=== PATIENT | male | born 1965 | race Native Hawaiian/Other Pacific Islander ===

== ENCOUNTER 2020-11-15 13:22 | Emergency (ER) | payer OTHER ==
[~2020-11-15] VITALS: Ht 180.3 cm; Wt 97.5 kg
--- NOTE | 2020-11-15 13:50 | NUR ---
AFTER STARTING IV, PATIENT STARTED TO FEEL HOT, SWEATING AND FELT LIKE HE WAS GOING TO PASS OUT. PT WAS PROVIDED A COOL CLOTH, FLUIDS WERE STARTED WIDE OPEN AND BOTH SIDE RAILS WERE PUT UP. PT'S BLOOD PRESSURE DROPPED TO 87/57. AFTER FLUIDS STARTED, PATIENTS BLOOD PRESSURE WAS 126/67.
[2020-11-15] MEDS ORDERED: NS IV 1000 ML 1,000 ML ONE (13:55)
[2020-11-15 14:18] LABS: HEMATOCRIT 45 % (40-54); HEMOGLOBIN 15.7 G/DL (13.3-17.7); MEAN CORPUSCULAR HEMOGLOBIN 31 PG (25-34); MEAN CORPUSCULAR HGB CONC 35 G/DL (32-36); MEAN CORPUSCULAR VOLUME 87 FL (80-99); WHITE BLOOD COUNT 8.2 10^3/uL (4.3-11.0)
[2020-11-15 14:19] LABS: BASOPHILS % (AUTO) 1 % (0-10); EOSINOPHILS # (AUTO) 0.1 10^3/uL (0.0-0.3); EOSINOPHILS % (AUTO) 1 % (0-10); LYMPHOCYTES # (AUTO) 0.7 X 10^3 (1.0-4.0); LYMPHOCYTES % (AUTO) 8 % (12-44); MEAN PLATELET VOLUME 9.2 FL (7.4-10.4); MONOCYTES # (AUTO) 0.7 X 10^3 (0.0-1.0); MONOCYTES % (AUTO) 9 % (0-12); NEUTROPHILS # (AUTO) 6.6 X 10^3 (1.8-7.8); NEUTROPHILS % (AUTO) 81 % (42-75); PLATELET COUNT 268 10^3/uL (130-400)
--- NOTE | 2020-11-15 14:34 | Diagnostic Imaging Report ---
EXAM: CHEST 1 VIEW AP/PA ONLY INDICATION: Shortness of air. COMPARISON: None. FINDINGS: Normal heart size and pulmonary vascularity. No dense consolidation, pleural effusion or pneumothorax. No acute osseous findings. IMPRESSION: Negative chest. Dictated by: Dictated on workstation # [id number]
[2020-11-15 14:51] LABS: ALANINE AMINOTRANSFERASE 56 U/L (0-55); ALKALINE PHOSPHATASE 80 U/L (40-136); BILIRUBIN,TOTAL 0.5 MG/DL (0.1-1.0); BUN/CREATININE RATIO 15; CALCIUM 9.6 MG/DL (8.5-10.1); CARBON DIOXIDE 25 MMOL/L (21-32); CHLORIDE 104 MMOL/L (98-107); CREATININE SERUM 1.17 MG/DL (0.60-1.30); GFR ESTIMATED > 60; GLUCOSE 104 MG/DL (70-105); POTASSIUM 4.3 MMOL/L (3.6-5.0); SODIUM 141 MMOL/L (135-145)
[2020-11-15 14:52] LABS: ALBUMIN 4.5 GM/DL (3.2-4.5); TOTAL PROTEIN 7.5 GM/DL (6.4-8.2)
[2020-11-15] MEDS ORDERED: AZIT250T PO (16:00)
[2020-11-15] MEDS ORDERED: PRD20T PO (16:00)
[2020-11-15 16:16] VITALS: BP 159/86
--- NOTE | 2020-11-16 07:14 | ED General ---
General Chief Complaint: Respiratory Problems Stated Complaint: COVID +, COUGH, FEVER, ACHY Nursing Triage Note: PT ARRIVED BY PRIVATE VEHICLE WITH CHIEF COMPLAINT OF COVID POSITIVE. PT WAS ALERT, ORIENTED X 4 AND AMBULATORY ON ARRIVAL. PT AMBULATED TO ROOM 3. VITAL SIGNS WERE TAKEN AND IV WAS STARTED (20 GAUGE IN RIGHT AC), AND BLOOD WAS DRAWN. PT TESTED POSITIVE TODAY. PT HAS BEEN HAVING CHILLS, WEAKNESS, HAVING TO USE INHALERS MORE OFTEN THAN NORMAL. PT HAS HISTORY OF ASTHMA AND TAKES SINGULAIR AND 2 INHALERS AT HOME. PT DENIES ALLERGIES TO ANY MEDICATIONS AND ONLY HAS PMH OF ASTHMA AND DIVERTICULITIS. PT HAS HAD SURGERY ON FACE, BUT DENIES ANY OTHER SURGICAL HISTORY. PT IS A FORMER SMOKER, OCCASSIONALLY USES ALCOHOL AND DENIES DRUG USE. PT WENT TO [facility] TODAY AND TESTED POSITIVE. PT ALSO TAKES ZANTAC AND VITAMINS. Nursing Sepsis Screen: No Definite Risk Source of Information: Patient History of Present Illness Date Seen by Provider: Nov 15, 2020 Time Seen by Provider: 14:00 Initial Comments Patient is a 54-year-old male with history of asthma diagnosed with COVID earlier this afternoon who presents with 3 days of cough, body aches and sore throat. Patient reports chills, weakness and fatigue. Denies increased shortness of breath or wheezing. Patient has had routine use of his inhaler and Singulair with relief of chronic asthma symptoms. Denies chest pain, increased leg pain or swelling. No nausea vomiting or sweats. No other acute symptoms or complaints. Timing/Duration: 1-3 Hours, 2-3 Days Severity: Moderate Associated Systoms: Other Allergies and Home Medications Allergies Coded Allergies: No Known Drug Allergies (Unverified , 11/15/20) Home Medications Azithromycin 250 Mg Tablet, 250 MG PO UD TAKE 2 TABLETS TODAY, THEN TAKE 1 TABLET DAILY FOR 4 MORE DAYS Prescribed by: SHASHI BECKETT on 11/15/20 1600 Prednisone 20 Mg Tab, 60 MG PO DAILY Prescribed by: SHASHI BECKETT on 11/15/20 1600 Patient Home Medication List Home Medication List Reviewed: Yes Review of Systems Review of Systems Constitutional: see HPI Respiratory: see HPI Cardiovascular: see HPI Gastrointestinal: see HPI Genitourinary: see HPI Musculoskeletal: see HPI Skin: see HPI Psychiatric/Neurological: See HPI Hematologic/Lymphatic: See HPI Immunological/Allergic: see HPI All Other Systems Reviewed Negative Unless Noted: Yes Past Ihwqtju-Akgbht-Kgzpbz Hx Past Med/Social Hx: Reviewed Nursing Past Med/Soc Hx Patient Social History Alcohol Use: Occasionally Uses Recreational Drug Use: No Smoking Status: Former Smoker 2nd Hand Smoke Exposure: No Recent Foreign Travel: No Contact w/Someone Who Travel: No Recent Infectious Disease Expo: No Recent Hopitalizations: No Physical Abuse: No Sexual Abuse: No Mistreated: No Fear: No Seasonal Allergies Seasonal Allergies: No Past Medical History Surgeries: Yes (facial surgery) Respiratory: Yes (hx croup 2 years) Asthma Cardiac: No Genitourinary: No Gastrointestinal: Yes (diverticulitis) Musculoskeletal: No Endocrine: No HEENT: No Cancer: No Psychosocial: No Blood Disorders: No Physical Exam Vital Signs Vital Signs - First Documented 11/15/20 13:54 Temp 37.2 Pulse 84 Resp 14 B/P (MAP) 144/86 (105) Pulse Ox 93 O2 Delivery Room Air Capillary Refill : Less Than 3 Seconds Height, Weight, BMI Height: '" Weight: lbs. oz. kg; 29.00 BMI Method: General Appearance: No Apparent Distress, Anxious Eyes: Bilateral Eye Normal Inspection, Bilateral Eye PERRL, Bilateral Eye EOMI HEENT: PERRL/EOMI, TMs Normal, Pharynx Normal Neck: Full Range of Motion, Non Tender, Supple Respiratory: Lungs Clear Cardiovascular: Regular Rate, Rhythm Gastrointestinal: Non Tender, Soft Back: No CVA Tenderness Extremity: Normal Capillary Refill Neurologic/Psychiatric: Alert, Oriented x3 Skin: Normal Color Focused Exam Sepsis Stage: Ruled Out Progress/Results/Core Measures Suspected Sepsis Recent Fever Within 48 Hours: Yes Infection Criteria Present: Suspected New Infection New/Unexplained Altered Menta: No Sepsis Screen: No Definite Risk SIRS Temperature: Pulse: 89 Respiratory Rate: 15 Laboratory Tests 11/15/20 13:45: White Blood Count 8.2 Blood Pressure 159 /86 Mean: 105 Laboratory Tests 11/15/20 13:45: Creatinine 1.17, Platelet Count 268, Total Bilirubin 0.5 Results/Orders Lab Results Laboratory Tests Test 11/15/20 13:45 Range/Units White Blood Count 8.2 4.3-11.0 10^3/uL Red Blood Count 5.11 4.35-5.85 10^6/uL Hemoglobin 15.7 13.3-17.7 G/DL Hematocrit 45 40-54 % Mean Corpuscular Volume 87 80-99 FL Mean Corpuscular Hemoglobin 31 25-34 PG Mean Corpuscular Hemoglobin Concent 35 32-36 G/DL Red Cell Distribution Width 12.2 10.0-14.5 % Platelet Count 268 130-400 10^3/uL Mean Platelet Volume 9.2 7.4-10.4 FL Immature Granulocyte % (Auto) 1 % Neutrophils (%) (Auto) 81 H 42-75 % Lymphocytes (%) (Auto) 8 L 12-44 % Monocytes (%) (Auto) 9 0-12 % Eosinophils (%) (Auto) 1 0-10 % Basophils (%) (Auto) 1 0-10 % Neutrophils # (Auto) 6.6 1.8-7.8 X 10^3 Lymphocytes # (Auto) 0.7 L 1.0-4.0 X 10^3 Monocytes # (Auto) 0.7 0.0-1.0 X 10^3 Eosinophils # (Auto) 0.1 0.0-0.3 10^3/uL Basophils # (Auto) 0.0 0.0-0.1 10^3/uL Immature Granulocyte # (Auto) 0.1 0.0-0.1 10^3/uL Sodium Level 141 135-145 MMOL/L Potassium Level 4.3 3.6-5.0 MMOL/L Chloride Level 104 98-107 MMOL/L Carbon Dioxide Level 25 21-32 MMOL/L Anion Gap 12 5-14 MMOL/L Blood Urea Nitrogen 18 7-18 MG/DL Creatinine 1.17 0.60-1.30 MG/DL Estimat Glomerular Filtration Rate > 60 BUN/Creatinine Ratio 15 Glucose Level 104 70-105 MG/DL Calcium Level 9.6 8.5-10.1 MG/DL Corrected Calcium 9.2 8.5-10.1 MG/DL Total Bilirubin 0.5 0.1-1.0 MG/DL Aspartate Amino Transf (AST/SGOT) 35 H 5-34 U/L Alanine Aminotransferase (ALT/SGPT) 56 H 0-55 U/L Alkaline Phosphatase 80 40-136 U/L Troponin I < 0.30 <0.30 NG/ML Pro-B-Type Natriuretic Peptide 123.6 H <75.0 PG/ML Total Protein 7.5 6.4-8.2 GM/DL Albumin 4.5 3.2-4.5 GM/DL My Orders Orders - SHASHI BECKETT DO Ns Iv 1000 Ml (Sodium Chloride 0.9%) (11/15/20 13:55) Cbc With Automated Diff (11/15/20 13:58) Comprehensive Metabolic Panel (11/15/20 13:58) Troponin I Fs (11/15/20 13:58) Probnp Fs (11/15/20 13:58) Ekg Tracing (11/15/20 13:58) Chest 1 View Ap/Pa Only (11/15/20 13:58) Vital Signs/I&O 11/16/20 00:00 Intake Total 1000 ml Balance 1000 ml Capillary Refill : Less Than 3 Seconds Blood Pressure Mean: 105 Departure Communication (Admissions) Chest x-ray: No acute cardiopulmonary disease. Lab and imaging reviewed. Patient minimally symptomatic emergency department. Given patient's asthmatic history, we'll prescribe prednisone and Z-Duncan with instructions to monitor her home oxygen level. Return precautions reviewed. Patient verbalizes understanding agreement discharge instructions prior to departure Impression Primary Impression: COVID-19 Disposition: 01 HOME, SELF-CARE Condition: Stable Departure-Patient Inst. Referrals: [facility] (PCP) Primary Care Physician ANGELINA SCRUGGS APRN (Family) Primary Care Physician Scripts Azithromycin (Zithromax) 250 Mg Tablet 250 MG PO UD, #6 TAB TAKE 2 TABLETS TODAY, THEN TAKE 1 TABLET DAILY FOR 4 MORE DAYS Prov: SHASHI BECKETT DO 11/15/20 Prednisone (Prednisone) 20 Mg Tab 60 MG PO DAILY, #36 TAB 0 Refills Prov: SHASHI BECKETT DO 11/15/20 SHASHI BECKETT DO Nov 16, 2020 07:14
== END 2020-11-15 16:16 | disposition home or self-care (01) ==
LOC: ER FS 13:27
DX: U07.1 COVID-19 (principal); F41.9 Anxiety disorder, unspecified; Z87.891 Personal history of nicotine dependence; Z79.52 Long term (current) use of systemic steroids
CPT/HCPCS: 36415; 71045; 80053; 83880; 84484; 85025

== ENCOUNTER 2020-11-25 08:21 | Emergency (ER) | payer OTHER ==
[~2020-11-25] VITALS: Ht 177 cm; Wt 105.0 kg
[~2020-11-25 08:21] MED LIST: AZIT250T PO; PRD20T PO
[2020-11-25] MEDS ORDERED: IVER3TAB2 PO (09:01)
[2020-11-25] MEDS ORDERED: DEXA6TAB PO (09:01)
--- NOTE | 2020-11-25 09:02 | ED General ---
General Stated Complaint: SOB; COVID+ History of Present Illness Date Seen by Provider: Nov 25, 2020 Time Seen by Provider: 08:45 Initial Comments 54-year-old male presents with mild cough and intermittent shortness of air with exertion. Has been ill for the past 10 days and diagnosed with COVID-19 last week. Was started on steroids and azithromycin appropriately. Also taking recommended vitamins C, D and zinc. Concern today that his oxygen saturations were low 90s at home after exertion. He does have history of asthma, he is using albuterol and steroid inhalers appropriately. No recent fever or chills. Overall, actually states he is feeling better. Allergies and Home Medications Allergies Coded Allergies: No Known Drug Allergies (Unverified , 11/15/20) Home Medications Azithromycin 250 Mg Tablet, 250 MG PO UD TAKE 2 TABLETS TODAY, THEN TAKE 1 TABLET DAILY FOR 4 MORE DAYS Prescribed by: SHASHI BECKETT on 11/15/20 1600 Dexamethasone 6 Mg Tablet, 6 MG PO DAILY Prescribed by: FOX LEZAMA on 11/25/20 0901 Ivermectin 3 Mg Tablet, 12 MG PO DAILY take 4 tablets po today, then repeat 4 tablets po in 3 days Prescribed by: FOX LEZAMA on 11/25/20 09 Prednisone 20 Mg Tab, 60 MG PO DAILY Prescribed by: SHASHI BECKETT on 11/15/20 1600 Patient Home Medication List Home Medication List Reviewed: Yes Review of Systems Review of Systems Constitutional: No chills, No fever, No malaise, No weakness EENTM: no symptoms reported Respiratory: cough, dyspnea on exertion Cardiovascular: No chest pain, No edema, No palpitations Gastrointestinal: No abdominal pain, No nausea, No vomiting Musculoskeletal: No back pain, No joint pain Skin: No change in color, No rash Psychiatric/Neurological: Denies Numbness, Denies Paresthesia Past Trbjlgk-Rftbxm-Hphluo Hx Past Med/Social Hx: Reviewed Nursing Past Med/Soc Hx Patient Social History 2nd Hand Smoke Exposure: No Recent Foreign Travel: No Contact w/Someone Who Travel: No Recent Hopitalizations: No Seasonal Allergies Seasonal Allergies: No Past Medical History Surgeries: Yes (facial surgery) Respiratory: Yes (hx croup 2 years) Asthma Cardiac: No Genitourinary: No Gastrointestinal: Yes (diverticulitis) Musculoskeletal: No Endocrine: No HEENT: No Cancer: No Psychosocial: No Blood Disorders: No Physical Exam Vital Signs Capillary Refill : Height, Weight, BMI Height: '" Weight: lbs. oz. kg; 29.00 BMI Method: General Appearance: No Apparent Distress, WD/WN HEENT: TMs Normal, Normal ENT Inspection Neck: Non Tender, Supple Respiratory: Lungs Clear, Normal Breath Sounds, No Accessory Muscle Use, No Respiratory Distress Cardiovascular: Regular Rate, Rhythm, No Edema, No JVD Gastrointestinal: Non Tender, Soft Extremity: Normal Capillary Refill, Normal Inspection, Non Tender Neurologic/Psychiatric: Alert, Oriented x3, No Motor/Sensory Deficits, Normal Mood/Affect Progress/Results/Core Measures Suspected Sepsis SIRS Temperature: Pulse: Respiratory Rate: Blood Pressure / Mean: Results/Orders My Orders Orders - FOX LEZAMA DO Chest 1 View Ap/Pa Only (11/25/20 08:56) Vital Signs/I&O Capillary Refill : Diagnostic Imaging Diagonstic Imaging: Xray Plain Films/CT/US/NM/MRI: chest Reviewed: Reviewed by Me (moderate patchy infiltrates c/w covid pneumonia) Departure Impression Primary Impression: COVID-19 Disposition: 01 HOME, SELF-CARE Condition: Stable Departure-Patient Inst. Decision time for Depature: 09:02 Referrals: [facility] (PCP) Primary Care Physician ANGELINA SCRUGGS APRN (Family) Primary Care Physician Patient Instructions: Coronavirus Disease 2019 (COVID-19) ED Add. Discharge Instructions: Call your PCP regarding further instructions regarding your illness. Return to the ER for any worsening shortness of air or low oxygen saturations persisting below 90% Scripts Ivermectin (Ivermectin) 3 Mg Tablet 12 MG PO DAILY, #8 TAB take 4 tablets po today, then repeat 4 tablets po in 3 days Prov: MIGUEL ANGELVENSTINEFOX L DO 11/25/20 Dexamethasone (Dexamethasone) 6 Mg Tablet 6 MG PO DAILY for 5 Days, #5 TAB Prov: MIGUEL ANGELVENSTINEFOX L DO 11/25/20 CAITLYNSTINEFOX DO Nov 25, 2020 09:02
--- NOTE | 2020-11-25 09:27 | Diagnostic Imaging Report ---
INDICATION: Shortness of breath. EXAMINATION: Portable chest at 9:11 AM. FINDINGS: There are patchy alveolar infiltrates in both lungs, suspicious for viral pneumonia. There are no effusions. IMPRESSION: Patchy bilateral alveolar infiltrates, consistent with viral pneumonia. Dictated by: Dictated on workstation # [id number]
[2020-11-25 09:29] VITALS: BP 139/72
== END 2020-11-25 09:21 | disposition home or self-care (01) ==
LOC: EDUNIT# 08:21 → ER FS 08:22
DX: U07.1 COVID-19 (principal); J45.909 Unspecified asthma, uncomplicated
CPT/HCPCS: 71045

== ENCOUNTER → 2020-12-08 | Outpatient (CLI) | payer SELFPAY ==
[~2020-12-08] MED LIST changes: +DEXA6TAB PO; +HOLD METFORMIN - RECEIVED CONTRAST 20 ML VIAL IV SCH; +IOHEXOL 350 MG/ML 100 ML (OMNIPAQUE 350) VIAL IV ONE; +IVER3TAB2 PO; +NS 100 ML (IVPB) BAG IV ONE
[2020-12-08 08:29] LABS: BUN/CREATININE RATIO 16; CREATININE SERUM 0.98 MG/DL (0.60-1.30); GFR ESTIMATED > 60
--- NOTE | 2020-12-08 09:42 | Diagnostic Imaging Report ---
PROCEDURE: CT chest with contrast only. TECHNIQUE: Multiple contiguous axial images were obtained through the chest after administration of intravenous contrast. Auto Exposure Controls were utilized during the CT exam to meet ALARA standards for radiation dose reduction. DATE: December 08, 2020. COMPARISON: Chest radiograph November 25, 2020. INDICATION: 55-year-old male, history of COVID 19 infection and pneumonia. The patient tested positive in late October 2020. FINDINGS: There are multifocal branching areas of linear and reticulonodular opacification in the right upper lobe, right middle lobe, right lower lobe, left upper lobe, and left lower lobe. There is no pneumothorax. There is no pleural effusion. The central airways are patent. There is no identified pulmonary embolus. The main pulmonary artery diameter is within normal limits. The heart is not enlarged. There is no pericardial effusion. There is a right hilar lymph node on axial image 69 measuring 10 mm in short axis. There are subcentimeter short axis additional right hilar lymph nodes. There is a right paratracheal lymph node on axial image 55 measuring 8 mm in short axis. There is an AP window lymph node on axial image 55 measuring 11 mm in short axis. There are additional subcentimeter short axis mediastinal lymph nodes. There is no identified abnormally enlarged axillary lymph node specifically meeting CT size criteria for adenopathy. The imaged portions of the upper abdomen are unremarkable in appearance. There is no acute bony abnormality. There are degenerative changes of the spine. IMPRESSION: CT CHEST. 1. Multifocal extensive branching linear and reticulonodular opacities involving the lungs bilaterally could be consistent with result of COVID 19 infection although is technically nonspecific. Some of the components of the consolidation likely reflect scarring and chronic lung changes although active infectious etiology infection and/or pneumonitis is difficult to exclude. 2. Prominent right hilar and mediastinal lymph nodes most likely relating to the consolidative process. Report was faxed to [facility] by debra at 9:43AM. Dictated by: Dictated on workstation # [id number]
== END ==
LOC: RAD FS 07:33
PROVIDERS: ATTEND Nurse Practitioner Family
DX: U07.1 COVID-19 (principal); J12.82 Pneumonia due to coronavirus disease 2019; R91.8 Other nonspecific abnormal finding of lung field
CPT/HCPCS: 36415; 71260; 82565; 84520